=== PATIENT | female | born 1955 | race Caucasian/White ===

== ENCOUNTER 2018-08-19 08:29 | Emergency (ER) | payer BC ==
[~2018-08-19] VITALS: Ht 162.6 cm; Wt 105.5 kg
[2018-08-19] MEDS ORDERED: BYSTOLIC10 MG PO (08:38)
[2018-08-19] MEDS ORDERED: BETIMOL 5 ML5 ML OU (08:39)
[2018-08-19] MEDS ORDERED: LUMIGAN 2.5 ML2.5 M1 OP (09:03)
[2018-08-19] MEDS ORDERED: NORCO 325 MG-51 TAB PO (10:51)
[2018-08-19 10:58] VITALS: BP 163/85; PULSE 61
== END 2018-08-19 11:02 | disposition home or self-care (01) ==
LOC: COL.ER 08:29
DX: S46.911A Strain of unspecified muscle, fascia and tendon at shoulder and upper arm level, right arm, initial encounter (principal); S20.211A Contusion of right front wall of thorax, initial encounter; I10 Essential (primary) hypertension; V43.52XA Car driver injured in collision with other type car in traffic accident, initial encounter

== ENCOUNTER → 2023-02-20 | Outpatient (CLI) | payer BC ==
[~2023-02-20] MED LIST: BETIMOL 5 ML5 ML OU; BYSTOLIC10 MG PO; LUMIGAN 2.5 ML2.5 M1 OP; NORCO 325 MG-51 TAB PO
== END ==
LOC: COL.RAD 07:10
DX: R74.8 Abnormal levels of other serum enzymes (principal); R10.11 Right upper quadrant pain

== ENCOUNTER 2024-01-26 09:53 | Inpatient (IN) | payer MEDICARE ==
[~2024-01-26] VITALS: Ht 160 cm; Wt 111.5 kg
[~2024-01-26 09:53] MED LIST changes: +AMOXICILLIN 8751 TAB PO; +ASPIRIN 81M81 MG/TA2 PO; +BUSPAR5 MG PO; +COMPLETE MULTI1 TAB PO; +DESYREL 50MG50 MG PO; +DIFLUCAN200 MG PO; +FERRO-TIME325 MG PO; +PERCOCET 325 MG1 TA2 PO; +PROTONIX 40MG T40 MG PO; +THERA-D RAPID2000 IU PO
[2024-01-26] MEDS ORDERED: NS 1,000 ML IV SCH ×2 (10:15→13:45)
[2024-01-26] MEDS ORDERED: Cefepime 1 G in Water For Injection,Sterile 10 ML IV ONE (10:15)
[2024-01-26 10:28] LABS: COLLECTION METHOD CATHETER
[2024-01-26 10:32] LABS: ALBUMIN 1.9 g/dL (3.4-4.8); BILIRUBIN,TOTAL 0.9 mg/dL (0.2-1.2); CALCIUM 8.5 mg/dL (8.4-10.2); CREATININE, serum 0.57 mg/dL (0.57-1.11); POTASSIUM 3.5 mEq/L (3.5-4.5); TOTAL PROTEIN 6.5 g/dl (6.2-8.1)
[2024-01-26] MEDS ORDERED: Ondansetron 4 MG/2 ML VIAL IV ONE (10:45)
[2024-01-26] MEDS ORDERED: HYDROmorphone 0.5 MG/0.5 ML SYRINGE IV ONE (10:45)
[2024-01-26 11:00] LABS: PH 5.5 (5.0-8.5); URINE APPEARANCE TURBID (CLEAR/HAZY); URINE BLOOD 3+ (NEGATIVE); URINE COLOR Dark Yellow (YELLOW); URINE GLUCOSE NEGATIVE (NEGATIVE); URINE KETONE TRACE (NEGATIVE); URINE NITRATE NEGATIVE (NEGATIVE); URINE PROTEIN(semi-quant) TRACE (NEGATIVE)
[2024-01-26 11:05] LABS: HEMATOCRIT 26.8 % (37.0-47.0); HEMOGLOBIN 8.5 g/dl (12.5-16.0); MEAN CELL VOLUME 91 fl (80.0-100.0); MEAN CORPUSCULAR HEMOGLOBIN 29 pg (27-31); MEAN CORPUSCULAR HGB CONC 32 g/dl (33.0-37.0); MEAN PLATELET VOLUME 10.1 fl (7.4-10.4); PLATELET COUNT 426 K/mm3 (130-400); RED BLOOD COUNT 2.95 M/mm3 (4.10-5.30); REDCELL DISTRIBUTION WIDTH-CV 15.2 % (11.5-14.5)
[2024-01-26] MEDS ORDERED: Iohexol 300 - 100 ML VIAL IV ONE (11:22)
[2024-01-26] MEDS ORDERED: NS 100 ML IV SCH (11:23)
[2024-01-26 11:26] LABS: AMORPHOUS CRYSTAL PRESENT (NOT PRESENT); MUCOUS PRESENT (NOT PRESENT); URINE CALCIUM OXALATE CRYSTAL PRESENT (NOT PRESENT)
[2024-01-26 11:31] LABS: URINE BACTERIA MANY /hpf (NONE SEEN)
[2024-01-26 11:38] LABS: URINE WBC >50 /hpf (0-2)
[2024-01-26 12:03] LABS: ANISOCYTOSIS 1+; BAND 6 % (0-10); LYMPHOCYTE 2 % (20.0-51.0); METAMYELOCYTE 2 % (0-0); NEUTROPHILS 90 % (42.0-75.2); PLATELET ESTIMATE INCREASED (NORMAL)
[2024-01-26 12:04] LABS: HYPOCHROMIA 1+; STOMATOCYTE 1+
[2024-01-26] MEDS ORDERED: Polyethylene Glycol 3350 17 GM PDS PO PRN (13:45)
[2024-01-26] MEDS ORDERED: Ondansetron 4 MG/2 ML VIAL IV PRN (13:45)
[2024-01-26] MEDS ORDERED: Acetaminophen 500 MG TAB PO PRN (13:45)
[2024-01-26] MEDS ORDERED: Vancomycin 1.25 GM,Special Dose/Pharmacy Prepared 1.25 GM in NS 250 ML IV SCH ×2 (14:00→23:30)
[2024-01-26] MEDS ORDERED: metroNIDAZOLE 100 ML IV ONE (14:00)
[2024-01-26] MEDS ORDERED: Morphine 4 MG/ML VIAL IV PRN (14:00)
[2024-01-26] MEDS ORDERED: COLACE 100100 MG/CAP PO (15:03)
[2024-01-26] MEDS ORDERED: WELLBUTRIN XL150 MG PO (15:08)
[2024-01-26 15:45] VITALS: BP 108/69; PULSE 101; TEMP 98.4
--- NOTE | 2024-01-26 16:23 | NUR ---
PT TO ROOM 324 PER CART FROM ED. TRANSFERED TO BED. PABON CATHETER TO DD. CLOUDY URINE. ABDOMINAL INCISION TO LEFT LATERAL WITH A COLOSTOMY BAG OVER DRAIN, SCANT DRAINAGE IN BAG. MEDIAL TO THAT THE OTHER INCISION COVERED WITH GAUZE AND TAPE. CDI. MIDLINE INCISION HEALED FROM LAST ADMISSION.
[2024-01-26] MEDS ORDERED: Cefepime 1 G in Water For Injection,Sterile 10 ML IV SCH (16:45)
[2024-01-26 17:00] VITALS: BP_SYST 108
[2024-01-26 20:00] VITALS: BP_SYST 109
[2024-01-26 20:08] VITALS: BP 109/67; PULSE 89; TEMP 98.2
[2024-01-26] MEDS ORDERED: busPIRone 5 MG TAB PO SCH (21:00)
[2024-01-26] MEDS ORDERED: TIMOLOL 0.25% OP SCH (21:00)
[2024-01-26] MEDS ORDERED: traZODone 50 MG TAB PO SCH (21:00)
[2024-01-26] MEDS ORDERED: metroNIDAZOLE 100 ML IV SCH (22:00)
[2024-01-26 23:51] VITALS: BP 97/61; PULSE 78; TEMP 97.8
[2024-01-27] VITALS (12 sets, daily range): BP systolic 97–145; BP diastolic 55–71; PULSE 78–87; TEMP 98–98.6
[2024-01-27 06:21] LABS: MEAN CELL VOLUME 91 fl (80.0-100.0); MEAN CORPUSCULAR HGB CONC 31 g/dl (33.0-37.0); MEAN PLATELET VOLUME 10.1 fl (7.4-10.4); PLATELET COUNT 351 K/mm3 (130-400); RED BLOOD COUNT 2.48 M/mm3 (4.10-5.30); REDCELL DISTRIBUTION WIDTH-CV 15.2 % (11.5-14.5)
[2024-01-27 06:26] LABS: HEMATOCRIT 22.6 % (37.0-47.0); HEMOGLOBIN 7.1 g/dl (12.5-16.0); MEAN CORPUSCULAR HEMOGLOBIN 29 pg (27-31)
[2024-01-27 06:35] LABS: CALCIUM 7.7 mg/dL (8.4-10.2); CREATININE, serum 0.5 mg/dL (0.57-1.11); POTASSIUM 3.3 mEq/L (3.5-4.5)
--- NOTE | 2024-01-27 06:36 | NUR ---
AM WBC UP FROM ADMISSION, NAILA BERMUDEZ TAKING OVER PT WILL REPORT WHEN PA ARRIVES ON FLOOR.
[2024-01-27 07:11] LABS: BAND 10 % (0-10); EOSINOPHIL 2 % (0-4); LYMPHOCYTE 7 % (20.0-51.0); NEUTROPHILS 77 % (42.0-75.2); PLATELET ESTIMATE NORMAL (NORMAL)
[2024-01-27 07:12] LABS: HYPOCHROMIA 1+; OVALOCYTES 1+
--- NOTE | 2024-01-27 07:16 | NUR ---
critical wbc called to sabrina davis, no new orders at this time
--- NOTE | 2024-01-27 07:50 | NUR ---
blood culture results called Joselyn Pardo
--- NOTE | 2024-01-27 08:48 | NUR ---
JASMIN LEYVA MADE AWARE OF CALL FROM TAYA IN LAB WITH LAB REPORT OF CULTURES
[2024-01-27] MEDS ORDERED: buPROPion XL (24-HR) 150 MG TAB PO SCH (09:00)
--- NOTE | 2024-01-27 09:09 | NUR ---
Patient resting in bed. She did well with breakfast, sat up and food cut up. She denies nausea. Pain managed at this time with PRN tylenol, Left flank. Ostomy bag intact to Left quadrant wound. Gauze dressing to left lower quadant. Drainage present to gauze. Scds ble. Legs and feet cleansed and lotion applied to skin. socks off. oral care supplies provided. Will monitor
--- NOTE | 2024-01-27 10:10 | NUR ---
SPOKE WITH LEAH WITH WOUND CARE, SHE IS AWARE OF NEW CONSULT.
[2024-01-27] MEDS ORDERED: oxyCODONE/Acetaminophen 5-325 MG TAB PO PRN (11:15)
--- NOTE | 2024-01-27 11:40 | NUR ---
Called and spoke to pharmacy about vanc orders and holding off on giving ordered dose of vanc. also called and spoke to infection control about VRE results. Patient placed on contact precautions
[2024-01-27] MEDS ORDERED: NS IV SCH (13:00)
[2024-01-27] MEDS ORDERED: DAPTOMYCIN IV SCH (13:00)
--- NOTE | 2024-01-27 13:20 | NUR ---
Did discussed patient H&H results with hospitalist and Lovenox dose still okayed to give. Patient tolerated PO K+, we reviewed lab results and why she is ordered to take.
--- NOTE | 2024-01-27 14:53 | NUR ---
Social work student met with patient to discuss discharge planning. Patient lives in [place] ([facility]) and sees Dr. Rodriguez for primary care. Patient obtains her medications from [employer] with no difficulties affording them. Patient reported her best point of contacts are her brother Vijay (ph#:[phone]) and her friend Sulema (ph#:[phone]). Patient's dpoa-hc is Vijay. Patient does not use DME and is independent with ADLS. Patient is unable to transport herself to and from appointments due to being legally blind, so her friends take her. Patient reported that what she does after discharge depends on the doctors orders and that she will "not be going back to [facility]".
--- NOTE | 2024-01-27 17:15 | NUR ---
Patient slept well this afternoon. Assisted to sit up and cut up dinner. IV to INT. Schaefer to DD with edwin output. PO intake encouraged. New dressing to prior drain site, gauze soiled. New ostomy appliance applied to fistula, output odorous. Scds off per patient request. Will monitor
--- NOTE | 2024-01-27 18:28 | NUR ---
Gloria did well with dinner. denies needs, will report off to nightnurse
--- NOTE | 2024-01-27 21:30 | NUR ---
Patient assessed at this time, see shift assessment, reports pain to abdomen PS of 6.5-7/10, percocet given per request, INT to left hand infusing well, with cisneros to DD, ostomy bag intact to left quadrant wound, gauze dressing to left lower quadrant CDI, will closely monitor, has been passing gas, denies further needs, call light and personal items within reach, will continue to monitor.
[2024-01-28] VITALS (11 sets, daily range): BP systolic 124–144; BP diastolic 54–67; PULSE 85–90; TEMP 97.9–98.8
--- NOTE | 2024-01-28 02:03 | NUR ---
Patient awakened for scheduled lovenox shot, requested tylenol at this time as well.
[2024-01-28 07:09] LABS: MEAN CELL VOLUME 92 fl (80.0-100.0); MEAN CORPUSCULAR HGB CONC 32 g/dl (33.0-37.0); MEAN PLATELET VOLUME 10.5 fl (7.4-10.4); PLATELET COUNT 424 K/mm3 (130-400); RED BLOOD COUNT 2.94 M/mm3 (4.10-5.30); REDCELL DISTRIBUTION WIDTH-CV 15.2 % (11.5-14.5)
[2024-01-28 07:11] LABS: HEMOGLOBIN 8.5 g/dl (12.5-16.0); MEAN CORPUSCULAR HEMOGLOBIN 29 pg (27-31)
[2024-01-28 07:32] LABS: ALBUMIN 1.6 g/dL (3.4-4.8); BILIRUBIN,TOTAL 0.4 mg/dL (0.2-1.2); CALCIUM 8.4 mg/dL (8.4-10.2); CREATININE, serum 0.53 mg/dL (0.57-1.11); MAGNESIUM 1.8 mg/dL (1.6-2.6); POTASSIUM 3.5 mEq/L (3.5-4.5); TOTAL PROTEIN 5.9 g/dl (6.2-8.1)
[2024-01-28 07:37] LABS: ANISOCYTOSIS 1+; EOSINOPHIL 4 % (0-4); HYPOCHROMIA 2+; LYMPHOCYTE 2 % (20.0-51.0); NEUTROPHILS 90 % (42.0-75.2); PLATELET ESTIMATE NORMAL (NORMAL)
--- NOTE | 2024-01-28 08:50 | NUR ---
Pt doing okay this morning. She stated that she felt like she needed to have bowel movement, but would need pain medication prior to going. I did given her PRN IV pain medication. Assisted pt to the restroom, but she was not able to go. Pt having complaints that her cisneros catheter rocha when she goes to the bathroom. Pt is standby assist with walker. Does well, just needs directed where to go.
--- NOTE | 2024-01-28 10:00 | NUR ---
Gloria with wound care was in with pt. Ostomy changed over fistula drain site an additional ostomy wafer/drainage bag placed lower over previous drain site. Pt tolerated well. PRN percocet given to help manage abd pain.
[2024-01-28] MEDS ORDERED: Docusate Sodium 100 MG CAP PO SCH (11:00)
[2024-01-28] MEDS ORDERED: Polyethylene Glycol 3350 17 GM PDS PO SCH (11:00)
--- NOTE | 2024-01-28 12:23 | NUR ---
PT reports she is doing well. Stated that the PRN percocet did help. No needs at this time, will continue to monitor
--- NOTE | 2024-01-28 16:13 | NUR ---
Dr Mancilla in recently. Discussed pt have cisneros catheter in which she has had complaints of. Dr Mancilla okay with cisneros being removed. Called and discussed with Can LEYVA, orders entered for cisneros to be removed.
--- NOTE | 2024-01-28 16:33 | NUR ---
Service Advisor met with patient to discuss discharge planning. Patient stated she is not returning to [facility], but is open to other SNFs in the area. SW reviewed in network options (patient has [employer]) including [facility], [facility], [facility], and [facility]. SW also discussed the possible need for LTACH depending on wound care/antibiotic complexity. Patient stated she wants to stay as close to home as possible. Patient is not sure where she wants referrals sent and wants to discuss things with Dr. Mancilla and her friend, Sulema before referrals are sent. SW did advised patient that a referral could be sent, but that [facility] has been short on beds. SW contacted Sulema to discuss the above. Sulema inquired if [facility] or [facility] were in network and SW advised she would have to check with them. Sulema will discuss options with patient and SW will follow up tomorrow. Discharge Planning: SNF/S[facility] Bed/LTACH, patient considering options.
--- NOTE | 2024-01-28 20:56 | NUR ---
Patient resting in bed, assessed at this time, see shift assessment, A/Ox4, reports pain to abdomen, PS of 8/10, will medicate with percocet in an hour, 2 ostomy appliance bag on to left lower quadrant draining brown pasty output, reports she's passing gas and had a BM, refused her SCD's, offered to give her a sponge bath but refused, denies further needs, call light and personal items within reach, will continue to monitor.
[2024-01-29] VITALS (12 sets, daily range): BP systolic 119–144; BP diastolic 47–64; PULSE 86–92; TEMP 97.8–98.8
--- NOTE | 2024-01-29 01:58 | NUR ---
Patient just went to the bathroom assisted by the roni kim given at this time, emptied 2 ostomy appliance pouch, the fistula drain site was 150ml brownish and pasty and the previous drain site was only 10ml brownish and pasty as well.
--- NOTE | 2024-01-29 04:55 | NUR ---
Patient complained of pain to the drain site, PS of 7/10, medicated with percocet, ostomy pouches were drained at this time, fistula drain site was 50ml and the previous drain site were 3ml, still brown and pasty, denies further needs.
--- NOTE | 2024-01-29 08:36 | NUR ---
Called lab due to pt requesting particular lab staff. Informed pt this staff member is not working today. Natalie from lab and Harriet YOO from [facility] came up incase Natalie was not able to find a vein. They had no issues getting labs drawn.
--- NOTE | 2024-01-29 09:10 | NUR ---
Pt doing well this morning. She stated that she is not having much pain, but wanted something prior to therapy. Discussed options, and decided on tylenol. Ostomy wafers are in place with no leaking present. Gloria from wound care in to see pt and assess pouches. Pt denies any other needs, will continue to monitor
[2024-01-29 09:22] LABS: MEAN CELL VOLUME 91 fl (80.0-100.0); MEAN CORPUSCULAR HGB CONC 31 g/dl (33.0-37.0); MEAN PLATELET VOLUME 10.5 fl (7.4-10.4); PLATELET COUNT 386 K/mm3 (130-400); RED BLOOD COUNT 2.96 M/mm3 (4.10-5.30); REDCELL DISTRIBUTION WIDTH-CV 15.4 % (11.5-14.5)
[2024-01-29 09:24] LABS: HEMATOCRIT 26.8 % (37.0-47.0); HEMOGLOBIN 8.4 g/dl (12.5-16.0); MEAN CORPUSCULAR HEMOGLOBIN 28 pg (27-31)
[2024-01-29 09:43] LABS: CALCIUM 8.2 mg/dL (8.4-10.2); CREATININE, serum 0.46 mg/dL (0.57-1.11); MAGNESIUM 1.8 mg/dL (1.6-2.6); POTASSIUM 3.5 mEq/L (3.5-4.5)
[2024-01-29 09:51] LABS: ANISOCYTOSIS 1+; BAND 5 % (0-10); HYPOCHROMIA 1+; LYMPHOCYTE 12 % (20.0-51.0); NEUTROPHILS 80 % (42.0-75.2); PLATELET ESTIMATE NORMAL (NORMAL)
--- NOTE | 2024-01-29 11:38 | NUR ---
Pt continues to do well. No needs verbalized at this time. OT in to work with pt
--- NOTE | 2024-01-29 14:40 | NUR ---
Pt doing well, PRN pain medication working well. I did call Dr Beckett regarding cultures and antibiotics in regards to pt possibly needing PICC line. No new orders at this time
--- NOTE | 2024-01-29 19:00 | NUR ---
Assisted patient to the bathroom, voided and had a bm, assisted back to bed and assisted her for supper tray, denies further needs.
--- NOTE | 2024-01-29 20:23 | NUR ---
Patient complained of nausea, IV zofran given.
[2024-01-30] VITALS (8 sets, daily range): BP systolic 122–142; BP diastolic 53–65; PULSE 86–94; TEMP 98–98.7
--- NOTE | 2024-01-30 02:44 | NUR ---
Patient up to the bathroom at this time assisted by a tech, was told by the tech that patient reports that her ostomy appliance pouch is leaking, this nurse came in to see the patient, looks like it's not leaking anymore but noted a small amount of shadowing around the skin barrier/wafer, patient not agreeable to remove the appliance at this time and apply a new one, this nurse reinforced it with gauze and mefix tape, patient wanted to wait for Gloria,the BODY CLEANER this morning, will closely monitor.
--- NOTE | 2024-01-30 04:50 | NUR ---
Patient's IV leaking and infiltrated at this time, refused her IV antibiotic and IV reinsertion at this time since the plan for her today is to put a PICC line.
--- NOTE | 2024-01-30 08:26 | NUR ---
Pt laying in bed. A&Ox4. VSS. S1S2 on tele. Clear lungs in upper lobes bilaterally, diminished in bases. ABD is rounded, soft, non-tender with audible bowel sounds. Palpable pulses in all extremities. +2 edema in BLE. 2 ostomy bags on LLQ - both have brown-tinged drainage. Night RN told this RN, wound care was coming in at 0700 to change. Initially no IV, and requested advanced IV services to place a new one. IV placed in L wrist with no issues. Pt has call light in reach and bed alarm on.
--- NOTE | 2024-01-30 08:40 | NUR ---
Discussed plan with provider. Limit interuptions overnight to allow Pt to sleep. Monitor VS BID (0800, 1999). Insert PICC line later today and repeat Blood Cultures this afternoon. Take off tele. Pt seemed agreeable to this plan.
--- NOTE | 2024-01-30 10:31 | NUR ---
LATE ENTRY: 01/29/24 Metal Furniture Polisher followed up with patient on discharge planning. SW reviewed in network options again and patient stated she wants to go to IPR. SW attempted to discuss second preference, however patient stated she wants to try for IPR before discussing this further. SW contacted Leona, IPR Director and gave referral. SW also updated patient's friend, Sulema on conversation.
--- NOTE | 2024-01-30 13:06 | NUR ---
Supervisor Opening And Picking spoke with Leona, IPR Director who met with patient today and will start authorization. Leona advised she had a conversation with patient about their concern that [employer] may not authorize. Discharge Plan: IPR Screen
[2024-01-30] MEDS ORDERED: Linezolid 600 MG TAB PO SCH (14:30)
--- NOTE | 2024-01-30 18:38 | NUR ---
PATIENT RESTING IN BED WITH EYES CLOSED WITH NO ACUTE DISTRESS NOTED WITH TV OFF AND NO FAMILY PRESENT. PATIENT ON ROOM AIR. INT TO RIGHT AC INTACT WITH NO COMPLICATIONS NOTED. PATIENT DENIES ANY NEEDS AT THIS TIME. PATIENT CARE ASSUME FROM JUSTYN. BED IN LOW POSITION WITH WHEELS LOCKED WITH RAILS UP X3 AND CALL LIGHT WITHIN REACH. BED ALARM ON.
--- NOTE | 2024-01-30 20:25 | NUR ---
PATIENT RESTING IN BED WITH ALL LIGHTS OFF WITH TV OFF WITH NO FAMILY PRESENT WITH NO ACUTE DISTRESS NOTED. PATIENT ON ROOM AIRE. INT TO RIGHT AC INTACT WITH NO COMPLICATIONS NOTED. PATIETN C/O PAIN TO BACK AND NAUSEA. PO PERCOCET AND IV ZOFRAN GIVEN PER MD ORDER. PATIENT STATES PAIN LEVEL IS 8 ON A SCALE OF 0 TO 10. PATIENT REFUSED MORPHINE. MORPHINE RETURNED TO THE MEDICAL [facility]ENTER WITH MERY RODAS RN WITNESS. ASSESSMENT COMPLETED. OSTOMY BAGS TO LLQ INTACT WITH BROWNISH DRAINAGE NOTED. PATIENT TOELRATED WELL. PATIENT DENIES ANY OTHER NEEDS AT THIS TIME. BED IN LOW POSITION WITH WHEELS LOCKED WITH RIALS UP X3 AND CALL LIGHT WITHIN REACH. BED ALARM ON.
[2024-01-30] MEDS ORDERED: Melatonin 3 MG TAB PO SCH (21:00)
--- NOTE | 2024-01-30 21:25 | NUR ---
PATIENT RESTING IN BED WITH TV OFF WITH NO FAMILY PRESENT WITH NO ACUTE DISTRESS NOTED. PATIENT ON ROOM AIR. INT TO RIGHT AC INTACT WITH NO COMPLICATIONS NOTED. MEDICATION ADMINISTRATION COMPLETED AT THIS TIME. PATIENT TOLERATED WELL. PATIENT DENIES ANY NEEDS AT THIS TIME. BED IN LOW POSITION WITH WHEELS LOCKED WITH RAILS UP X3 AND CALL LIGHT WITHIN REACH. BED ALARM ON.
--- NOTE | 2024-01-31 02:06 | NUR ---
PATIENT RESTING IN BED WITH ALL LIGHTS OFF WITH TV OFF WITH NO FAMILY PRESENT WITH NO ACUTE DISTRESS NOTED. PATIENT ON ROOM AIR. INT TO RIGHT AC INTACT WITH NO COMPLICATIONS NOTED. MEDICATION ADMINISTRATION COMPLETED AT THIS TIME. PATIENT C/O PAIN. PO PERCOCET GIVEN PER MD ORDER. PATIENT STATES PAIN LEVEL IS 6.5 ON SCALE OF 0 TO 10. PATIENT REQUESTED ICE AND WATER. BOTH GIVEN. PATIENT TOLERATED WELL. PATIENT DENIES ANY OTHER NEEDS AT THIS TIME. BED IN LOW POSITION WITH WHEELS LOCKED WITH RAILS UP X3 AND CALL LIGHT WITHIN REACH. BED ALARM ON.
[2024-01-31 08:35] VITALS: BP 137/55; PULSE 91; TEMP 97.5
[2024-01-31 09:00] VITALS: BP_SYST 137
[2024-01-31 09:13] LABS: MEAN CELL VOLUME 89 fl (80.0-100.0); MEAN CORPUSCULAR HGB CONC 32 g/dl (33.0-37.0); MEAN PLATELET VOLUME 10.3 fl (7.4-10.4); PLATELET COUNT 369 K/mm3 (130-400); RED BLOOD COUNT 2.74 M/mm3 (4.10-5.30); REDCELL DISTRIBUTION WIDTH-CV 15.5 % (11.5-14.5)
[2024-01-31 09:15] LABS: HEMATOCRIT 24.3 % (37.0-47.0); HEMOGLOBIN 7.8 g/dl (12.5-16.0); MEAN CORPUSCULAR HEMOGLOBIN 28 pg (27-31)
[2024-01-31 09:28] LABS: CALCIUM 7.9 mg/dL (8.4-10.2); CREATININE, serum 0.51 mg/dL (0.57-1.11); MAGNESIUM 1.9 mg/dL (1.6-2.6); POTASSIUM 3.3 mEq/L (3.5-4.5)
[2024-01-31 09:43] LABS: ANISOCYTOSIS 1+; BAND 1 % (0-10); EOSINOPHIL 3 % (0-4); HYPOCHROMIA 1+; LYMPHOCYTE 18 % (20.0-51.0); NEUTROPHILS 59 % (42.0-75.2); PLATELET ESTIMATE NORMAL (NORMAL)
[2024-01-31] MEDS ORDERED: Potassium Bicarbonate/Citrate 20 MEQ Effervescent TAB PO SCH (10:15)
[2024-01-31] MEDS ORDERED: *Potassium Replacement Protocol MC SCH (10:15)
--- NOTE | 2024-01-31 15:51 | NUR ---
Optometrist Owner attended clinical rounds with the team. SHARONDA and Hospitalist discussed other options for post acute rehab and patient would like referral sent to [facility]. Patient resistant to [facility] as she stated her friend, Sulema recommended against it. Patient's first preference is still IPR. SHARONDA contacted Kristine at [facility] and faxed referral. SHARONDA also followed up with Sulema who advised she belives [facility] would be a good option and will discuss this with patient. Sulema followed up with SHARONDA and advised patient is agreeable to have referral sent there. SHARONDA contacted Caryl at [facility] and gave referral. Discharge Plan; IPR vs [facility]
[2024-01-31] MEDS ORDERED: cefTRIAXone 2 G,Lidocaine PF 1% 4.2 ML IV SCH (17:29)
[2024-01-31] MEDS ORDERED: cefTRIAXone 2 G in Water For Injection,Sterile 20 ML IV SCH (18:00)
[2024-01-31 20:02] VITALS: BP 122/60; PULSE 89; TEMP 98.1
[2024-01-31 21:00] VITALS: BP_SYST 122
[2024-01-31] MEDS ORDERED: Melatonin 3 MG TAB PO SCH (21:00)
[2024-02-01 07:00] LABS: MEAN CELL VOLUME 89 fl (80.0-100.0); MEAN CORPUSCULAR HGB CONC 32 g/dl (33.0-37.0); MEAN PLATELET VOLUME 10.5 fl (7.4-10.4); PLATELET COUNT 358 K/mm3 (130-400); RED BLOOD COUNT 2.62 M/mm3 (4.10-5.30); REDCELL DISTRIBUTION WIDTH-CV 15.6 % (11.5-14.5)
[2024-02-01 07:07] LABS: HEMATOCRIT 23.3 % (37.0-47.0); HEMOGLOBIN 7.4 g/dl (12.5-16.0); MEAN CORPUSCULAR HEMOGLOBIN 28 pg (27-31)
[2024-02-01 07:17] LABS: CALCIUM 7.8 mg/dL (8.4-10.2); CREATININE, serum 0.48 mg/dL (0.57-1.11); MAGNESIUM 1.9 mg/dL (1.6-2.6); POTASSIUM 3.7 mEq/L (3.5-4.5)
[2024-02-01] MEDS ORDERED: Potassium Bicarbonate/Citrate 20 MEQ Effervescent TAB PO SCH (07:30)
[2024-02-01 08:03] VITALS: BP 123/55; PULSE 90; TEMP 98.8
[2024-02-01 08:10] LABS: BAND 1 % (0-10); EOSINOPHIL 1 % (0-4); LYMPHOCYTE 8 % (20.0-51.0); NEUTROPHILS 76 % (42.0-75.2)
[2024-02-01 08:11] LABS: ANISOCYTOSIS 1+; PLATELET ESTIMATE NORMAL (NORMAL)
[2024-02-01 08:40] VITALS: BP_SYST 123
--- NOTE | 2024-02-01 08:40 | NUR ---
Pt sitting up in bedside chair. Pt ambulated back from bathroom with waker. A&Ox4. VSS. S1S2. Clear lungs. ABD is rounded, soft, non-tender with audible bowel sounds. Palpable pulses in all extremities with normal strength. PICC line in R upper arm is patent, flushes easily, positive blood return out of red port. x2 ostomy bags in LLQ - both are CDI and have small amount of light marroquin drainage. +2 edema in BLE. PCT in room to do hygiene. Administered AM meds as per EMAR. No further needs at this time. Call light in reach.
--- NOTE | 2024-02-01 09:55 | NUR ---
Pt reporting pain - 8/10, achy, across lower abdomen. Pt stated Tylenol helped a little but then after moving around with therapy, the gas pain got worse. Pt also reported nausea. Administered meds as per EMAR.
--- NOTE | 2024-02-01 14:05 | NUR ---
SHARONDA contacted both [facility] on status of pending authorization for [facility] referral. Left voicemail with [facility] and spoke with nurse (Mily) at [facility] facility and was informed that case management does not work over the weekend and review notes and at this time authorization is still pending.
[2024-02-01 16:35] VITALS: BP 122/60; PULSE 85; TEMP 98.4
--- NOTE | 2024-02-01 17:00 | NUR ---
PATIENT ALERT AND ORIENTED X4. VSS. PATIENT HERE FOR ABDOMINAL ABSCESS. PATIENT DENIES ANY PAIN AT THIS TIME. PICC TO RIGHT UPPER ARM, DOUBLE LUMEN, GOOD BLOOD RETURN AND FLUSHES WELL. APPLIANCE AND OSTOMY CHANGED X2. PATIENT DENIES ANY FURTHER NEEDS. CALL LIGHT IN REACH. BED ALARM ON.
[2024-02-01 20:02] VITALS: BP 139/57; BP_SYST 138; PULSE 85; TEMP 98.3
[2024-02-01 21:27] VITALS: BP_SYST 139
[2024-02-02 07:32] VITALS: BP 127/57; PULSE 90; TEMP 98.3
--- NOTE | 2024-02-02 08:50 | NUR ---
PATIENT A/O X4. LEGALLY BLIND, USES WALKER WITH 1 ASSIST. CONTINENT OF URINE, YELLOW, CLEAR. BM THIS AM, LOOSE, CONTINENT. EMPTIED BOTH OSTOMY BAGS, BROWN LIQUID. BARRIER CREAM APPLIED TO COCCYX. PATIENT STATES COCCYX FEELS BETTER. EDEMA TO BLE. PITTING RESOLVES QUICKLY. NO SCDS ON DURING AM, PATIENT REFUSED TO REAPPLY. PATIENT CALLED IN BREAKFAST. CALL LIGHT IN REACH
[2024-02-02 09:00] VITALS: BP_SYST 127
--- NOTE | 2024-02-02 11:05 | NUR ---
CHANGED OSTOMY BAGS, BUT CHOSE NOT TO CAHNGE APPLIANCE DUE TO PATIENT'S SKIN SHOWING SLIGHT IRRITATION AND THERE WERE NO LEAKS WITH BOTH APPLIANCES. PATIENT AGREED TO PLAN.
--- NOTE | 2024-02-02 12:22 | NUR ---
Clinical updates faxed to [facility] and [facility].
--- NOTE | 2024-02-02 15:04 | NUR ---
CHANGED OSTOMY BAGS X2. SKIN BARRIER INTACT X2, LEFT IN PLACE. APPLIED THIN STRIP MEPILEX BETWEEN 2 SKIN BARRIERS EDGE LOOKED IT MAY PEEL UP. SITES, PINK. NO COMPLAINT OF PAIN FROM PATIENT.CALL LIGHT WITHIN REACH. TABLE PLACED PER PATIENT VERBALIZATION
[2024-02-02 15:58] VITALS: BP 133/58; PULSE 90; TEMP 98.3
[2024-02-02 19:22] VITALS: BP 141/59; PULSE 80; TEMP 98
[2024-02-02 20:00] VITALS: BP_SYST 141
[2024-02-03 05:45] LABS: MEAN CELL VOLUME 89 fl (80.0-100.0); MEAN CORPUSCULAR HGB CONC 32 g/dl (33.0-37.0); MEAN PLATELET VOLUME 10.4 fl (7.4-10.4); PLATELET COUNT 339 K/mm3 (130-400); RED BLOOD COUNT 2.55 M/mm3 (4.10-5.30); REDCELL DISTRIBUTION WIDTH-CV 16.3 % (11.5-14.5)
[2024-02-03 05:49] LABS: HEMATOCRIT 22.7 % (37.0-47.0); HEMOGLOBIN 7.2 g/dl (12.5-16.0); MEAN CORPUSCULAR HEMOGLOBIN 28 pg (27-31)
[2024-02-03 06:07] LABS: CALCIUM 7.8 mg/dL (8.4-10.2); CREATININE, serum 0.47 mg/dL (0.57-1.11); POTASSIUM 3.8 mEq/L (3.5-4.5)
[2024-02-03 06:44] LABS: HYPOCHROMIA 2+; LYMPHOCYTE 9 % (20.0-51.0); NEUTROPHILS 80 % (42.0-75.2)
[2024-02-03 06:45] LABS: ANISOCYTOSIS 1+; PLATELET ESTIMATE NORMAL (NORMAL)
[2024-02-03 08:09] VITALS: BP 128/57; PULSE 87; TEMP 98.6
[2024-02-03 08:53] VITALS: BP_SYST 128
[2024-02-03] MEDS ORDERED: Potassium Bicarbonate/Citrate 20 MEQ Effervescent TAB PO ONE (09:00)
--- NOTE | 2024-02-03 11:35 | NUR ---
Hub Bander left message for [facility] and [facility] to follow up on status of athorization for skilled services. Received call from Carol Ann at [facility] stating that they have received authorization from insurance and can accept patient today. She provided nurse to nurse number for report to be called ([phone]) and Provider name of GORDON Mccray. information provided to nurse. Discussed acceptance with patient at bedside. IPR Director present to inform patient that she does not qualify for IPR placement. Patient informed that [facility] has accepted and received auth from insurance and can accept her today if surgeon determines she is stable for discharge. Patient voiced disappointment that [facility] did not accept. Informed patient that [facility] has not returned call. SW called Carol Ann at [facility] to alert her of pending visit with surgeon to determine that patient can discharge. Carol Ann stated they can admit patient preferably by 1600. Discharge plan: [facility]
[2024-02-03 11:43] VITALS: BP 116/62; PULSE 94; TEMP 98.3
--- NOTE | 2024-02-03 14:05 | NUR ---
SHARONDA recieved call from Carol Ann at [facility] stating concern of patient's labs. They are asking for patient to remain inpt and have labs redone tomorrow before accepting. Dr. Boone notified and agreeable, Discharge plan: [facility]
[2024-02-03 14:52] LABS: CLOSTRIDIUM DIFF A/B NEG
--- NOTE | 2024-02-03 17:53 | NUR ---
Pt leaving the floor at this time for CT scan
[2024-02-03 20:00] VITALS: BP 117/48; PULSE 86; TEMP 99
--- NOTE | 2024-02-03 20:23 | NUR ---
Patient in good spirits, told this nurse that her son and his family came in to visit her last saturday which they were not in good relation before, assessed at this time, reports her pain at 7/10, medicated with percocet, still with PICC to right upper arm CDI, with 2 ostomy appliance to left lower quadrant will closely monitor for drainage and leakage, plan of care discussed to include vitals which will be done when the lovenox is due at 0145, denies further needs, call light and personal items within reach, will monitor.
[2024-02-03 21:00] VITALS: BP_SYST 117
[2024-02-03 21:30] VITALS: TEMP 98.7
[2024-02-04 01:58] VITALS: BP 134/58; PULSE 96; TEMP 99.1
--- NOTE | 2024-02-04 02:17 | NUR ---
Awakened patient at this time for scheduled lovenox shots, she voided and had a bm, reports pain to abdomen, PS of 6/10,medicated with percocet, denies further needs.
[2024-02-04 05:36] VITALS: TEMP 98.1
[2024-02-04 06:43] LABS: MEAN CELL VOLUME 90 fl (80.0-100.0); MEAN CORPUSCULAR HGB CONC 32 g/dl (33.0-37.0); MEAN PLATELET VOLUME 10.3 fl (7.4-10.4); PLATELET COUNT 335 K/mm3 (130-400); RED BLOOD COUNT 2.59 M/mm3 (4.10-5.30); REDCELL DISTRIBUTION WIDTH-CV 16.8 % (11.5-14.5)
[2024-02-04 06:45] LABS: HEMATOCRIT 23.2 % (37.0-47.0); HEMOGLOBIN 7.5 g/dl (12.5-16.0); MEAN CORPUSCULAR HEMOGLOBIN 29 pg (27-31)
[2024-02-04 06:55] LABS: CALCIUM 7.9 mg/dL (8.4-10.2); CREATININE, serum 0.47 mg/dL (0.57-1.11); POTASSIUM 3.8 mEq/L (3.5-4.5)
[2024-02-04 07:23] LABS: BAND 1 % (0-10); EOSINOPHIL 2 % (0-4); LYMPHOCYTE 11 % (20.0-51.0); NEUTROPHILS 75 % (42.0-75.2)
[2024-02-04 07:24] LABS: ANISOCYTOSIS 1+; PLATELET ESTIMATE NORMAL (NORMAL)
[2024-02-04 08:29] VITALS: BP 139/57; PULSE 100; TEMP 98.4
[2024-02-04 09:00] VITALS: BP_SYST 139
[2024-02-04] MEDS ORDERED: metroNIDAZOLE 250 MG TAB PO SCH (09:00)
--- NOTE | 2024-02-04 09:27 | NUR ---
SW attended clinical rounds. Patient cleared for discharge per Dr. Boone and Dr Mancilla. Updated clinicals faxed and message left for Carol Ann at [facility] to alert of discharge. SW met with patient to discuss discharge and Medicare IM form. Patient insistent on speaking with Dr. Mancilla before signing IM form. SW called Sulema, patient's primary contact. Sulema voiced frustration that she wasn't notified of patient's discharge and stated she has plans today and is unsure of patient's transport. Discussed transportation being arranged to take patient to [facility] with patient being responsible for payment. Sulema stated she needs to talk with her and will return call to this SW. Dr. Boone updated. Discharge plan: [facility]
[2024-02-04] MEDS ORDERED: ZYVOX 600MG600 MG PO (10:42)
[2024-02-04] MEDS ORDERED: FLAGYL500 MG PO (10:43)
[2024-02-04] MEDS ORDERED: LEADER CLE17 GM/Dose PO (10:45)
--- NOTE | 2024-02-04 11:16 | NUR ---
SW received call back from Sulema stating that she can pick patient up to transport to [facility] at 1400. Nurse notified of spanish moss picker time. Discharge orders faxed to [facility]. SW met with patient to discuss Medicare IM form. Patient agreeable to discharge and authorized this SW to sign on her behalf due to patient's blindness. Orginial on chart, copy given to patient.
--- NOTE | 2024-02-04 11:21 | NUR ---
PATIENT ALERT AND ORIENTED X4. VSS. PATIENT HERE FOR ABD ABSCESS/FISTULA. PICC TO RIGHT UPPER ARM DOUBLE LUMEN, FLUSHES WELL WITH GOOD BLOOD RETURN. OSTOMY BAGS AND APPLIANCES CHANGED WITH STOMA POWDER AND SKIN PREPPED USED. PATIENT REPORTS PAIN 6/10, REQUESTS PAIN MEDICATION. PATIENT AMBULATED TO BATHROOM WITH NO ISSUE. PATIENT RESTING IN BED, CALL LIGHT IN REACH. BED ALARM ON.
--- NOTE | 2024-02-04 13:42 | NUR ---
OSTOMY CARE AND APPLIANCE CARE PROVIDED THIS AM. PATIENT DRESSED AND AMBULATED TO BATHROOM. PATIENT DENIES ANY FURTHER NEEDS. PACKET GIVEN TO PATIENT'S FRIEND, JOSE MARTIN, TO GIVE TO [facility]. PATIENT ESCORTED OUT WITH [facility]ONG[facility]. ATTEMPTED TO CALL REPORT. LEFT NUMBER FOR THEM TO RETURN THIS NURSE'S CALL.
--- NOTE | 2024-02-04 13:54 | NUR ---
PATIENT ESCORTED OUT VIA WHEELCHAIR WITH FRIEND FOR TRANSPORT TO [facility]. PICC IN PLACE, KAERN, DOUBLE LUMEN. PERSONAL AFFECTS WITH PATIENT.
[2024-02-09] MEDS ORDERED: PERCOCET 325 MG1 TA2 PO (20:10)
== END 2024-02-04 15:00 | disposition swing bed (61) | DRG 871 ==
LOC: COL.ER 09:53 → SURG 12:29
PROVIDERS: Family Medicine; Internal Medicine; Internal Medicine Infectious Disease; Physician Assistant; ADMIT Internal Medicine
PROC: 02HV33Z Insertion of Infusion Device into Superior Vena Cava, Percutaneous Approach (ICD-10-PCS; principal; 2024-01-31)
DX: A41.9 Sepsis, unspecified organism (principal); K65.1 Peritoneal abscess; N39.0 Urinary tract infection, site not specified; K63.2 Fistula of intestine; J90 Pleural effusion, not elsewhere classified; Z16.21 Resistance to vancomycin; E87.1 Hypo-osmolality and hyponatremia; Z20.822 Contact with and (suspected) exposure to COVID-19; F32.A Depression, unspecified; K21.9 Gastro-esophageal reflux disease without esophagitis; B95.2 Enterococcus as the cause of diseases classified elsewhere; D64.9 Anemia, unspecified; G47.00 Insomnia, unspecified; H54.7 Unspecified visual loss; B95.7 Other staphylococcus as the cause of diseases classified elsewhere; R19.7 Diarrhea, unspecified; E87.6 Hypokalemia; K59.00 Constipation, unspecified; N83.291 Other ovarian cyst, right side; Z79.899 Other long term (current) drug therapy; Z88.1 Allergy status to other antibiotic agents; Z91.041 Radiographic dye allergy status; Z23 Encounter for immunization
CPT/HCPCS: A4314; C1751; J0692; J0696; J0878; J1170; J1650; J1836; J2270; J2405; J3370; J7030; J7050; Q3014; Q9967

== ENCOUNTER 2024-06-01 16:31 | Observation (INO) | payer MEDICARE ==
[~2024-06-01] VITALS: Ht 162.6 cm; Wt 96.2 kg
[~2024-06-01 16:31] MED LIST changes: +COLACE 100100 MG/CAP PO; +FLAGYL 500500 MG/100 IV; +FLAGYL500 MG PO; +LEADER CLE17 GM/Dose PO; +MAXIPIME1 GM IV; +NEURONTIN100 MG/CAP PO; +PROBIOTIC ACID1 EAC3 PO; +ROXICODONE 55 MG/TAB PO; +TYLENOL 325MG325 MG PO; +WELLBUTRIN XL150 MG PO; +ZYVOX 600MG600 MG PO; +ZYVOX PREM600 MG/300 IV
[2024-06-01 17:38] LABS: BASO # 0.1 K/mm3 (0.0-0.2); BASO % 0.8 % (0.0-2.0); EOS # 0.1 K/mm3 (0.0-0.7); EOS % 0.8 % (0.0-4.0); GRAN # 5.7 K/mm3 (1.4-6.5); GRAN % 76.4 % (42.2-75.2); LYMPH # 0.5 K/mm3 (1.2-3.4); LYMPH % 7.3 % (20.0-51.0); MEAN CELL VOLUME 95 fl (80.0-100.0); MEAN CORPUSCULAR HGB CONC 32 g/dl (33.0-37.0); MEAN PLATELET VOLUME 10.2 fl (7.4-10.4); MONO # 1.1 K/mm3 (0.1-0.6); MONO % 14.4 % (1.7-9.3); PLATELET COUNT 243 K/mm3 (130-400); RED BLOOD COUNT 3.12 M/mm3 (4.10-5.30); REDCELL DISTRIBUTION WIDTH-CV 19.5 % (11.5-14.5)
[2024-06-01 17:42] LABS: HEMATOCRIT 29.7 % (37.0-47.0); HEMOGLOBIN 9.5 g/dl (12.5-16.0); MEAN CORPUSCULAR HEMOGLOBIN 30 pg (27-31)
[2024-06-01 17:46] LABS: COLLECTION METHOD CATHETER
[2024-06-01 17:55] LABS: URINE APPEARANCE CLEAR (CLEAR/HAZY); URINE BLOOD NEGATIVE (NEGATIVE); URINE COLOR YELLOW (YELLOW); URINE GLUCOSE NEGATIVE (NEGATIVE); URINE KETONE NEGATIVE (NEGATIVE); URINE NITRATE NEGATIVE (NEGATIVE); URINE PROTEIN(semi-quant) NEGATIVE (NEGATIVE); URINE UROBILINOGEN 0.2 E.U/dL (0.2-1.0)
[2024-06-01 17:57] LABS: BILIRUBIN,TOTAL 0.6 mg/dL (0.2-1.2); CALCIUM 8.6 mg/dL (8.4-10.2); CREATININE, serum 0.8 mg/dL (0.57-1.11); MAGNESIUM 1.5 mg/dL (1.6-2.6); TOTAL PROTEIN 6.3 g/dl (6.2-8.1)
[2024-06-01 18:03] LABS: TROPONIN-I 0.013 ng/mL (0.00-0.033)
[2024-06-01] MEDS ORDERED: Magnesium Oxide 400 MG TAB PO ONE (18:30)
[2024-06-01] MEDS ORDERED: NS 250 ML IV ONE (18:45)
[2024-06-01] MEDS ORDERED: Acetaminophen 325 MG TAB PO PRN (19:15)
[2024-06-01] MEDS ORDERED: Potassium Bicarbonate/Citrate 20 MEQ Effervescent TAB PO SCH (19:30)
[2024-06-01] MEDS ORDERED: Iohexol 300 - 100 ML VIAL IV ONE (20:18)
[2024-06-01] MEDS ORDERED: NS 50 ML IV SCH (20:19)
[2024-06-01 21:20] VITALS: BP 138/81; PULSE 84; TEMP 97.7
[2024-06-01] MEDS ORDERED: ELIQUIS 5MG PO (22:00)
[2024-06-01] MEDS ORDERED: PROTONIX 40MG T40 MG PO (22:07)
[2024-06-01] MEDS ORDERED: LASIX 20MG TABL20 MG PO (22:08)
[2024-06-01] MEDS ORDERED: ATIVAN 0.50.5 MG/TAB PO (22:09)
[2024-06-01] MEDS ORDERED: ROXICODONE 55 MG/TAB PO (22:17)
[2024-06-01] MEDS ORDERED: K-DUR20 MEQ PO (22:19)
[2024-06-01] MEDS ORDERED: PEPCID 20MG TAB20 MG PO (22:19)
[2024-06-01] MEDS ORDERED: ZOFRAN ODT4 MG PO (22:22)
[2024-06-01] MEDS ORDERED: Apixaban 5 MG TABLET PO SCH (22:39)
[2024-06-01] MEDS ORDERED: busPIRone 5 MG TAB PO SCH (22:41)
[2024-06-01] MEDS ORDERED: traZODone 50 MG TAB PO SCH (22:41)
[2024-06-01] MEDS ORDERED: Cholecalciferol (Vit D3) 1000 Units TAB PO SCH (22:44)
[2024-06-01] MEDS ORDERED: MAG-OX 400400 MG/TAB PO (22:45)
[2024-06-01] MEDS ORDERED: DULCOLAX S10 MG/SUPP RC (22:45)
[2024-06-01] MEDS ORDERED: SENNA-LAX8.6 MG PO (22:46)
[2024-06-01] MEDS ORDERED: PROBIOTIC BLEN1 EACH PO (22:46)
[2024-06-01] MEDS ORDERED: oxyCODONE 5 MG TAB PO PRN (23:00)
[2024-06-01] MEDS ORDERED: LORazepam 0.5 MG TAB PO PRN (23:00)
[2024-06-01] MEDS ORDERED: Furosemide 40 MG/4 ML VIAL IV ONE (23:15)
[2024-06-01 23:24] VITALS: BP 123/78; PULSE 99; TEMP 98.3
[2024-06-02] VITALS (11 sets, daily range): BP systolic 125–166; BP diastolic 62–92; PULSE 66–94; TEMP 97.4–98.5
[2024-06-02 01:41] LABS: BASO # 0.1 K/mm3 (0.0-0.2); BASO % 0.8 % (0.0-2.0); EOS # 0.1 K/mm3 (0.0-0.7); EOS % 2.2 % (0.0-4.0); GRAN # 4.3 K/mm3 (1.4-6.5); GRAN % 71.8 % (42.2-75.2); LYMPH # 0.6 K/mm3 (1.2-3.4); LYMPH % 10.1 % (20.0-51.0); MEAN CELL VOLUME 93 fl (80.0-100.0); MEAN CORPUSCULAR HGB CONC 33 g/dl (33.0-37.0); MEAN PLATELET VOLUME 10.3 fl (7.4-10.4); MONO # 0.9 K/mm3 (0.1-0.6); MONO % 14.8 % (1.7-9.3); PLATELET COUNT 201 K/mm3 (130-400); RED BLOOD COUNT 2.89 M/mm3 (4.10-5.30); REDCELL DISTRIBUTION WIDTH-CV 19.3 % (11.5-14.5)
[2024-06-02 01:43] LABS: HEMATOCRIT 26.8 % (37.0-47.0); HEMOGLOBIN 8.8 g/dl (12.5-16.0); MEAN CORPUSCULAR HEMOGLOBIN 30 pg (27-31)
[2024-06-02 01:54] LABS: ANION GAP 12 mmol/L (7-16); CALCIUM 8.3 mg/dL (8.4-10.2); CHLORIDE 101 mEq/L (98-107); GLUCOSE 89 mg/dL (70-99); POTASSIUM 3.6 mEq/L (3.5-4.5); SODIUM 135 mEq/L (136-145)
[2024-06-02 01:56] LABS: BLOOD UREA NITROGEN < 5 mg/dL (10-20)
--- NOTE | 2024-06-02 04:54 | NUR ---
Vancomycin Initial Dosing Pharmacy Note Ordering provider: Gavin Mcgregor MD Indication/duration: Abdominal abcess x 7 days Relevant comorbidities: Complicated abdominal hx, hx of VRE LABS: WBC = 6.0, SCr = 0.8 Recommendation: Will draw troughs and follow levels. Loading dose: 2 grams Maintenance dose: 1 gram every 12 hours Trough goal: 15-20 ug/mL
--- NOTE | 2024-06-02 08:00 | NUR ---
PATIENT A&O X4. VSS. NO C/O PAIN OR N/V. PATIENT TRANSFERS WITH ASSIST X1 WITH WALKER AND GAIT BELT. PATIENT USES BEDSIDE COMMODE FOR TOILETING. BREAKFAST ORDERED. SHIFT ASSESSMENT COMPLETE AND MORNING MEDICATIONS ADMINISTERED. PERIPHERAL IV IN RAC IS INTACT AND PATENT. IV ANTIBIOTICS RUNNING NOW. NO FURTHER NEEDS AT THIS TIME. CALL LIGHT WITHIN REACH.
[2024-06-02] MEDS ORDERED: ZOFRAN ODT4 MG PO (08:45)
[2024-06-02] MEDS ORDERED: Magnesium Oxide 400 MG TAB PO SCH (09:00)
[2024-06-02] MEDS ORDERED: buPROPion XL (24-HR) 150 MG TAB PO SCH (09:00)
[2024-06-02] MEDS ORDERED: Famotidine 20 MG TAB PO SCH (09:00)
[2024-06-02] MEDS ORDERED: Furosemide 40 MG/4 ML VIAL IV SCH (09:00)
[2024-06-02] MEDS ORDERED: Furosemide 40 MG TAB PO SCH (09:00)
--- NOTE | 2024-06-02 13:59 | NUR ---
Entry Level Manufacturing Engineer attended clinical rounds with the team and patient to have surgical consult today. SHARONDA followed up with patient to complete initial intake. Patient was discharged from [facility] ([facility]) yesterday and attempted to return home. With the assist of two people, she was able to go up the 17 stairs into her home. Patient advised her friend went out to buy her a stool riser, but while her friend was out, she went to the bathroom on her own and then could not get out of her bathroom. EMS was contacted and she was brought to the ED where she was then admitted under observation status. Patient stated she was [facility] with [facility] and was only given notice that she would be discharged Saturday (06/01/24) on Saturday (05/29/24). Patient stated she was supposed to be set up with [facility] at time of discharge. Patient stated he was trying to secure a recliner so she could sleep in it once she got home. Patient stated she called her son yesterday for assistance but he "blew up" at her. Patient stated she has a walker at home and was working on getting grab bars and stool riser for home. When SW asked what DME she used at home, patient initially stated "nothing". Patient stated she has 17 stairs into her home. Patient advised her friend, Sulema (ph#[phone]) is one of the people who helped her into the home yesterday. Patient reported her brother, Vijay (ph#[phone]) is her DPOA-HC. SW inquired about discharge planning and patient is firm she is going home with Home Health. Patient asked about resources to assist her up her stairs and SW advised sometimes they utilize [facility] to assist patients into the home. SHARONDA Salinas faxed referral to [facility] . SHARONDA contacted Sulema, patient's friend who expressed great concern with patient returning home. Sulema stated it took two people yesterday to barely get patient back into her apartment. Sulema advised patient could not lift her legs independently and could not get in/out of her bathroom. Sulema stated patient does not have a working washer/dryer and her bed is elevated and she cannot safely get in/out of it, which is why patient plans to sleep in a recliner. Sulema stated she would be available by phone to particpate in a care plan conference tomorrow during rounding with Substitute Crossing Guard. Discharge Plan: Home with [facility] vs placement, pending patient willingness
--- NOTE | 2024-06-02 17:25 | NUR ---
PATIENT VERY ANXIOUS ABOUT NOT BEING SEEN BY SURGEON FOR SURGICAL CONSULT YET TODAY. CALLED DR SUAREZ AND LET HIM KNOW THE SITUATION AND HE SAID HE WILL BE IN THIS EVENING TO SEE HER.
[2024-06-03] VITALS (11 sets, daily range): BP systolic 122–145; BP diastolic 72–79; PULSE 88–96; TEMP 97.9–98.2
--- NOTE | 2024-06-03 00:56 | NUR ---
Shift assessment completed- see documentation. Pt is alert and oriented. She reports pain inhis lower extremeties upon movement. States that she believes the soreness is from her fall prior to admission. Pt was assisted to the bedside commode. PM medications administered along with PRN ativan and oxicodone as requested. Pt requested a purewick due to lasix administration tonight. This was carried out. Intake and output being monitored in addition to the colostomy. Pt was assisted with positioning in bed. Pt denies other needs at this time. Fall precautions in place and call light within reach.
[2024-06-03 07:49] LABS: BASO # 0.1 K/mm3 (0.0-0.2); BASO % 1.1 % (0.0-2.0); EOS # 0.2 K/mm3 (0.0-0.7); EOS % 3.3 % (0.0-4.0); GRAN # 3.7 K/mm3 (1.4-6.5); GRAN % 67.9 % (42.2-75.2); LYMPH # 0.6 K/mm3 (1.2-3.4); LYMPH % 11.7 % (20.0-51.0); MEAN CELL VOLUME 94 fl (80.0-100.0); MEAN CORPUSCULAR HGB CONC 33 g/dl (33.0-37.0); MEAN PLATELET VOLUME 10.1 fl (7.4-10.4); MONO # 0.8 K/mm3 (0.1-0.6); MONO % 15.6 % (1.7-9.3); PLATELET COUNT 216 K/mm3 (130-400); RED BLOOD COUNT 2.79 M/mm3 (4.10-5.30); REDCELL DISTRIBUTION WIDTH-CV 19.3 % (11.5-14.5)
[2024-06-03 07:56] LABS: HEMATOCRIT 26.1 % (37.0-47.0); HEMOGLOBIN 8.6 g/dl (12.5-16.0); MEAN CORPUSCULAR HEMOGLOBIN 31 pg (27-31)
[2024-06-03 08:11] LABS: ANION GAP 16 mmol/L (7-16); CALCIUM 8.9 mg/dL (8.4-10.2); CHLORIDE 96 mEq/L (98-107); CREATININE, serum 0.71 mg/dL (0.57-1.11); SODIUM 134 mEq/L (136-145)
[2024-06-03 08:23] LABS: BLOOD UREA NITROGEN < 5 mg/dL (10-20); GLUCOSE 67 mg/dL (70-99); POTASSIUM 2.6 mEq/L (3.5-4.5)
[2024-06-03] MEDS ORDERED: Potassium Bicarbonate/Citrate 20 MEQ Effervescent TAB PO SCH ×2 (08:45→11:30)
[2024-06-03] MEDS ORDERED: *Potassium Replacement Protocol MC SCH (08:45)
--- NOTE | 2024-06-03 09:10 | NUR ---
Patient resting in bed, she Dr. Brannon just saw her. Alert and oriented x4, satates noone has been there to help her. Pt starts to complain that nobody has paying attention to her and started to seems to want to cry.This nurse explained I am right there to do it while Dr. Mancilla just arriving to see her. Dr. Mancilla explains plan and that he will talk to the team about it. PT and OT arrived to work with her. I asked her to take her medications and explained she is getting her antibiotics. Pt upset and requested to talk to presentation manager. Report given to Charge nurse Glo. PT and OT still working wit PT.
--- NOTE | 2024-06-03 09:20 | NUR ---
This nurse unable to chart assessment since patient refused.
[2024-06-03] MEDS ORDERED: Potassium Chloride 10 mEq/100 mL IV Soln IV SCH (09:30)
--- NOTE | 2024-06-03 09:40 | NUR ---
Report given to BRUNA Solorzano.
[2024-06-03] MEDS ORDERED: Magnesium Sulfate 4% 50 ML IV ONE (10:30)
--- NOTE | 2024-06-03 11:19 | NUR ---
Report received from NAILA Merchant at 1000. Shift assessment completed. 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 This nurse notifed SHARONDA Linares of pt concerns and mitigation supervisor Taniya. INT to Rt AC patent with minimal drainage, no redness, or swelling. Flushes without complications. IV potassium started into Rt AC as ordered and this nurse provided education to pt regarding need for IV replacement. Pt agreeable. During potassium infusion pt stated to this nurse that IV was burning and intolerable pain. Pt requested infusion be stopped and stated she did not want IV potassium. This nurse stopped infusion and flushed line. This nurse provided education regarding oral potassium with drink and pt was agreeable. This nurse notifed GORDON Larios by phone and GORDON Larios gave TORB to switch from IV potassium to oral potassium.
[2024-06-03] MEDS ORDERED: Ondansetron 4 MG/2 ML VIAL IV PRN (12:45)
--- NOTE | 2024-06-03 14:46 | NUR ---
Production Engine Repairer met with patient per her request to discuss her discharge plan. Patient advised she feels like she doesn't know what's going on and also that her son "hates her". Patient feels that if she can get her home set up correctly with a recliner, she would be able to manage at home. SW discussed LTC as an alternative if she cannot care for herself at home. SW discussed applying for Medicaid and the process involved as patient would not be able to private pay. Patient still stated she wants to go home with [facility]. [facility] [employer] Sales Representative, Elder visited with patient at bedside today. Patient stated she is working on getting someone to drive her home and assist with delivery of a recliner to her apartment.
--- NOTE | 2024-06-03 21:33 | NUR ---
PT RESTING IN BED, ALERT AND ORIENTEDX3. RATES PAIN 6/10 AND REQUESTED OXYCODONE. ALSO GAVE PT ATIVIAN WITH NIGHT TIME MED. ASSESSED PT. COLOSTOMY IS DRAINING WELL. PT IS UPSET THAT SHE IS NOT GETTING HER LASIX TONIGHT. THIS NURSE EXPLAINED TO PT THAT HER POTASSIUM IS VERY LOW AND THAT IS WHY SHE IS NOT GETTING IT. PT REQUESTED TO TALK TO SEGREGATOR TIM. NO OTHER COMPLAINTS AT THIS TIME CALL LIGHT WITHIN REACH.
[2024-06-03] MEDS ORDERED: Potassium Bicarbonate/Citrate 20 MEQ Effervescent TAB PO ONE (22:30)
[2024-06-04] VITALS (12 sets, daily range): BP systolic 115–141; BP diastolic 66–86; PULSE 82–103; TEMP 97.6–99.3
--- NOTE | 2024-06-04 00:20 | NUR ---
PATIENT ASLEEP, RESTING IN BED. PATIENT EASILY AROUSES TO NAME. CALL LIGHT WITHIN REACH. FALL PRECAUTIONS IN PLACE. PATIENT DENIES ANY NEEDS OR COMPLAINTS AT THIS TIME. IV ANTX INFUSING WITHOUT ANY ISSUES OR COMPLAINTS.
[2024-06-04 03:55] LABS: BASO % 0.8 % (0.0-2.0); EOS # 0.1 K/mm3 (0.0-0.7); EOS % 2.5 % (0.0-4.0); GRAN # 3.3 K/mm3 (1.4-6.5); GRAN % 68.4 % (42.2-75.2); LYMPH # 0.6 K/mm3 (1.2-3.4); LYMPH % 12.1 % (20.0-51.0); MEAN CELL VOLUME 94 fl (80.0-100.0); MEAN CORPUSCULAR HGB CONC 32 g/dl (33.0-37.0); MEAN PLATELET VOLUME 10.1 fl (7.4-10.4); MONO # 0.8 K/mm3 (0.1-0.6); PLATELET COUNT 190 K/mm3 (130-400); RED BLOOD COUNT 2.85 M/mm3 (4.10-5.30); REDCELL DISTRIBUTION WIDTH-CV 19.2 % (11.5-14.5)
[2024-06-04 04:06] LABS: ANION GAP 10 mmol/L (7-16); CALCIUM 8.1 mg/dL (8.4-10.2); CHLORIDE 100 mEq/L (98-107); GLUCOSE 81 mg/dL (70-99); POTASSIUM 3.2 mEq/L (3.5-4.5); SODIUM 135 mEq/L (136-145)
[2024-06-04 04:13] LABS: BLOOD UREA NITROGEN < 5 mg/dL (10-20)
[2024-06-04 04:14] LABS: HEMATOCRIT 26.9 % (37.0-47.0); HEMOGLOBIN 8.7 g/dl (12.5-16.0); MEAN CORPUSCULAR HEMOGLOBIN 31 pg (27-31)
--- NOTE | 2024-06-04 04:47 | NUR ---
PATIENT VANC TROPH THIS AM CAME BACK AT 31.77. PHARMACY CALLED, PER PHARM NON ADMIN 0400 AM DOSE AND THEY INOCENCIA LOOK INTO CHANGING DOSE. NIGHT ENGINEERING CONSULTANT INFORMED IS AWARE PHARMACY HAS BEEN NOTIFIED. NO NEW ORDERS AT THIS TIME.
--- NOTE | 2024-06-04 07:00 | NUR ---
appears to be sleeping, in bed with lights off, eyes closed, resp quiet and easy, bedside shift report received from NAILA Beard
[2024-06-04] MEDS ORDERED: Potassium Bicarbonate/Citrate 20 MEQ Effervescent TAB PO SCH (07:30)
--- NOTE | 2024-06-04 08:00 | NUR ---
appears to be sleeping, awakened and full assessment completed, see interventions for furtherinfo, colostomy intact with liquid/semisoft brown stool in bag, puresick in place and removed at this time, pericare provided, rolled to side and cocyx is intact with slight redness to inside of buttocks, clear light green liquid from rectum during pericare, she states this has just started happening and Dr Mancilla needs to be made aware, pericare provided, breakfast ordered, denies needs at this time
--- NOTE | 2024-06-04 08:45 | NUR ---
Dr Brannon and care team in to see patient
[2024-06-04] MEDS ORDERED: Furosemide 40 MG TAB PO SCH (09:00)
--- NOTE | 2024-06-04 09:20 | NUR ---
breakfast at bedside, assisted with sitting up in bed and placing trayfor patient to eat
--- NOTE | 2024-06-04 10:15 | NUR ---
to radiology per WC for CT scan
--- NOTE | 2024-06-04 10:43 | NUR ---
returned per WC from radiology, sitting up on side of bed, [facility] states was unable to complete scan due to machine not working
--- NOTE | 2024-06-04 11:15 | NUR ---
physical therapy in to work with patient, assisted up to bathroom and assisted her with emptying her colostomy bag, there is a 150ml reddish brown liquid/soft stool and it has blood tinge steads in colostomy bag, pateint states she is still having loose liquid from rectum, do not observe any at this time, assisted out of bathroom and to recliner,
--- NOTE | 2024-06-04 11:40 | NUR ---
to radiology per WC for CT manriquez
--- NOTE | 2024-06-04 12:00 | NUR ---
returned from radiology per WC, assisted up and into bathroom, she voids qs, she is able to complete with cleaning and standing independently, then ambulates to chair, lunch ordered
[2024-06-04] MEDS ORDERED: Iohexol 300 - 100 ML VIAL IV ONE (12:02)
--- NOTE | 2024-06-04 13:04 | NUR ---
sitting up in bed and lunch delivered
--- NOTE | 2024-06-04 14:00 | NUR ---
social insurance specialist in and informed patient she would not be going home today, patient verbalizes understanding
--- NOTE | 2024-06-04 14:30 | NUR ---
Qa Lead attended clinical rounds with the team and patient is a possible discharge later pending a repeat CT. SW met with patient who confirmed she still wishes to return home with [facility] . Patient is working on contacting her son, Shane to determine if he can provide transportation home. Patient also expressed interested in private duty services. Elder from [facility] came up to patient's room to discuss getting that established for overnight care. Later in the afternoon, SHARONDA was advised patient will not be discharged today after review of the CT. SHARONDA updated Elder at [facility] .
--- NOTE | 2024-06-04 15:00 | NUR ---
c/o some abdominal pain and medicated with tylenol 650mg po
--- NOTE | 2024-06-04 17:45 | NUR ---
resting in bed, supper ordered
--- NOTE | 2024-06-04 19:04 | NUR ---
bedside shift report given to NAILA Jackman
--- NOTE | 2024-06-05 00:18 | NUR ---
Shift assessment completed- see documentation. Pt is alert and oriented. She reports pain at a 6/10 in her abdomen and requests pain medications prior to bed. PM medications were administered with PRN oxicodone and ativan as requested by pt. Colostomy was assessed and had minimal output at this time. Pt reports pain at the IV site upon flushing and there is leaking at the insertion site. IV access was discontinued and new site will be established. Fall precautions in place and call light left within reach.
[2024-06-05 00:23] VITALS: BP_SYST 124
[2024-06-05 03:57] VITALS: BP 146/80; PULSE 92; TEMP 98.2
[2024-06-05 04:30] VITALS: BP_SYST 146
--- NOTE | 2024-06-05 06:24 | NUR ---
IV access attempts unsuccessful by this nurse and the charge. supervisor vegetable farming was contacted. I called GORDON Stokes at 0320 concerning the delay in abx administration. He stated to resume IV abx therapy once IV access was ensured. Donnie sup achieved IV access at 0615 on L forearm. IV zosyn will be administered now and retimed in the DEC.
[2024-06-05 07:56] VITALS: BP 141/64; PULSE 92; TEMP 98.1
[2024-06-05 08:30] VITALS: BP_SYST 141
[2024-06-05] MEDS ORDERED: levoFLOXacin 750 MG TAB PO SCH (09:00)
[2024-06-05] MEDS ORDERED: metroNIDAZOLE 250 MG TAB PO SCH (09:00)
[2024-06-05] MEDS ORDERED: LEVAQUIN 750MG750 M1 PO (10:36)
[2024-06-05] MEDS ORDERED: FLAGYL500 MG PO (10:36)
[2024-06-05] MEDS ORDERED: MAG-OX 400400 MG/TAB PO (10:36)
[2024-06-05] MEDS ORDERED: PROBIOTIC ACID1 EAC3 PO (10:37)
--- NOTE | 2024-06-05 12:12 | NUR ---
DISCHARGE INSTRUCTIONS REVIEWED WITH PT. QUESTIONS ANSWERED. PT LEFT UNIT PER WHEEL CHAIR. ASSISTED INTO UBER.
--- NOTE | 2024-06-05 17:02 | NUR ---
Stack Clerk attended clinical rounds with the team. Patient is ready for discharge today, however stated she is not prepared to go home as she does not have a recliner, a ride home, or overnight private care set up. SHARONDA advised Home Health was set up and a referral had been made for private duty. SHARONDA also advised she could not stay another night in order to have more time to get a recliner or find a ride. Patient requested to speak with Chief Of Surgery. After CMD and [employer] met with patient, they informed SW that patient will leave at noon via UBER with assistance from [facility] to get up her stairs. SHARONDA arranged [facility] ride along with assistance from EMS to get into her apartment. SHARONDA contacted Elder at [facility] and faxed discharge orders. Elder advised they are working to establish private duty care for this evening.
--- NOTE | 2024-06-05 18:57 | NUR ---
calender worker helper and jeff Mathewstank house supervisor met with patient and confirmed that patient is medically cleared to discharge today. Patient wishes to return to her home and is agreeable to an uber ride with ambulance helping her get up the stairs into her apartment. Patient was recently brought to her home by friends, from a nursing facility. Patient states she couldn't stay there as she has rent to pay. Worker and patient discussed the need for patient to be in half-way care and how that is paid through her financial obligation and medicaid. Patient verbalizes she does not wish to be in front desk assistant care. Discharge plan: home with [facility].
--- NOTE | 2024-06-06 10:51 | NUR ---
SW was called on this day by [facility] staff member providing they will be unable to assist patient with services due to the patient being unable to transfer self. Staff member stated patient is awaiting information to be transfered to nursing facility. Staff member provided they will be contacting a private duty services to assist with patient needs. Nothing further.
== END 2024-06-05 12:19 | disposition home or self-care (01) ==
LOC: COL.ER 16:31 → MEDICAL 19:16
PROVIDERS: Emergency Medicine; Nurse Practitioner Family; ADMIT Internal Medicine
DX: R53.1 Weakness (principal); R53.81 Other malaise; K65.1 Peritoneal abscess; R10.9 Unspecified abdominal pain; R18.8 Other ascites; K76.0 Fatty (change of) liver, not elsewhere classified; N83.8 Other noninflammatory disorders of ovary, fallopian tube and broad ligament; D64.9 Anemia, unspecified; F32.A Depression, unspecified; E87.20 Acidosis, unspecified; R74.01 Elevation of levels of liver transaminase levels; I50.30 Unspecified diastolic (congestive) heart failure; E87.1 Hypo-osmolality and hyponatremia; E87.6 Hypokalemia; E83.42 Hypomagnesemia; R74.8 Abnormal levels of other serum enzymes; H54.7 Unspecified visual loss; Z86.711 Personal history of pulmonary embolism; Z86.718 Personal history of other venous thrombosis and embolism; Z79.01 Long term (current) use of anticoagulants; Z79.899 Other long term (current) drug therapy; Z93.3 Colostomy status; I07.1 Rheumatic tricuspid insufficiency
CPT/HCPCS: G0378; J1940; J2405; J2543; J3370; J3475; J3480; J7050; Q9967

== ENCOUNTER 2024-06-05 19:27 | Emergency (ER) | payer MEDICARE ==
[~2024-06-05] VITALS: Ht 160 cm; Wt 99.5 kg
[~2024-06-05 19:27] MED LIST changes: +ATIVAN 0.50.5 MG/TAB PO; +DULCOLAX S10 MG/SUPP RC; +ELIQUIS 5MG PO; +K-DUR20 MEQ PO; +LASIX 20MG TABL20 MG PO; +LEVAQUIN 750MG750 M1 PO; +MAG-OX 400400 MG/TAB PO; +PEPCID 20MG TAB20 MG PO; +PROBIOTIC BLEN1 EACH PO; +SENNA-LAX8.6 MG PO; +ZOFRAN ODT4 MG PO
[2024-06-05 19:28] VITALS: TEMP 98.3
[2024-06-05 20:16] LABS: BASO % 0.5 % (0.0-2.0); EOS % 0.2 % (0.0-4.0); GRAN # 6.8 K/mm3 (1.4-6.5); GRAN % 82.4 % (42.2-75.2); HEMOGLOBIN 10.8 g/dl (12.5-16.0); LYMPH # 0.6 K/mm3 (1.2-3.4); LYMPH % 7.3 % (20.0-51.0); MEAN CELL VOLUME 94 fl (80.0-100.0); MEAN CORPUSCULAR HEMOGLOBIN 31 pg (27-31); MEAN CORPUSCULAR HGB CONC 33 g/dl (33.0-37.0); MONO # 0.8 K/mm3 (0.1-0.6); MONO % 9.2 % (1.7-9.3); PLATELET COUNT 270 K/mm3 (130-400); RED BLOOD COUNT 3.53 M/mm3 (4.10-5.30)
[2024-06-05 20:17] LABS: HEMATOCRIT 33.1 % (37.0-47.0)
[2024-06-05 20:38] LABS: ALANINE AMINOTRANSFERASE 26 U/L (0-55); ALBUMIN 2.1 g/dL (3.4-4.8); ALKALINE PHOSPHATASE 421 U/L (40-150); ANION GAP 13 mmol/L (7-16); AST,SGOT 53 U/L (5-34); BILIRUBIN,TOTAL 0.9 mg/dL (0.2-1.2); CALCIUM 9.2 mg/dL (8.4-10.2); CHLORIDE 96 mEq/L (98-107); CREATININE, serum 0.75 mg/dL (0.57-1.11); GLUCOSE 91 mg/dL (70-99); MAGNESIUM 1.7 mg/dL (1.6-2.6); POTASSIUM 3.1 mEq/L (3.5-4.5); SODIUM 132 mEq/L (136-145)
[2024-06-05 20:39] LABS: BLOOD UREA NITROGEN < 5 mg/dL (10-20)
[2024-06-05 20:41] LABS: TROPONIN-I 0.015 ng/mL (0.00-0.033)
[2024-06-05 22:25] VITALS: BP 130/75; PULSE 88
== END 2024-06-05 22:25 | disposition home or self-care (01) ==
LOC: COL.ER 19:27
PROVIDERS: Emergency Medicine
DX: R53.1 Weakness (principal)

== ENCOUNTER 2024-07-09 11:24 | Emergency (ER) | payer MEDICARE ==
[~2024-07-09] VITALS: Ht 160 cm; Wt 95.5 kg
[2024-07-09 11:25] VITALS: TEMP 98.6
[2024-07-09] MEDS ORDERED: NS 1,000 ML IV ONE (11:45)
[2024-07-09 12:13] LABS: BASO % 0.5 % (0.0-2.0); EOS % 0.1 % (0.0-4.0); GRAN # 5.8 K/mm3 (1.4-6.5); GRAN % 78.4 % (42.2-75.2); LYMPH # 0.6 K/mm3 (1.2-3.4); LYMPH % 7.8 % (20.0-51.0); MEAN CELL VOLUME 101 fl (80.0-100.0); MEAN CORPUSCULAR HGB CONC 33 g/dl (33.0-37.0); MEAN PLATELET VOLUME 9.7 fl (7.4-10.4); MONO # 0.9 K/mm3 (0.1-0.6); MONO % 12.7 % (1.7-9.3); PLATELET COUNT 249 K/mm3 (130-400); RED BLOOD COUNT 2.22 M/mm3 (4.10-5.30); REDCELL DISTRIBUTION WIDTH-CV 17.5 % (11.5-14.5)
[2024-07-09 12:17] LABS: HEMATOCRIT 22.4 % (37.0-47.0); HEMOGLOBIN 7.3 g/dl (12.5-16.0); MEAN CORPUSCULAR HEMOGLOBIN 33 pg (27-31)
[2024-07-09 13:20] LABS: ALANINE AMINOTRANSFERASE 11 U/L (0-55); ALBUMIN 1.3 g/dL (3.4-4.8); ALKALINE PHOSPHATASE 397 U/L (40-150); ANION GAP 6 mmol/L (7-16); AST,SGOT 36 U/L (5-34); BILIRUBIN,TOTAL 0.7 mg/dL (0.2-1.2); C-REACTIVE PROTEIN 13.47 mg/dL (0.00-0.50); CALCIUM 6.5 mg/dL (8.4-10.2); CHLORIDE 106 mEq/L (98-107); CREATININE, serum 0.49 mg/dL (0.57-1.11); GLUCOSE 74 mg/dL (70-99); SODIUM 136 mEq/L (136-145); TOTAL PROTEIN 4.2 g/dl (6.2-8.1)
[2024-07-09 13:22] LABS: BLOOD UREA NITROGEN < 5 mg/dL (10-20)
[2024-07-09 13:23] LABS: POTASSIUM 2.1 mEq/L (3.5-4.5)
[2024-07-09] MEDS ORDERED: Potassium Chloride 100 ML IV ONE ×2 (13:30→16:00)
[2024-07-09] MEDS ORDERED: Iohexol 300 - 100 ML VIAL IV ONE (14:04)
[2024-07-09] MEDS ORDERED: NS 100 ML IV SCH (14:05)
[2024-07-09] MEDS ORDERED: Magnesium Sulfate 8% 50 ML IV ONE (15:30)
[2024-07-09] MEDS ORDERED: NS & 40 mEq KCl 1,000 ML IV ONE (16:00)
[2024-07-09] MEDS ORDERED: Magnesium Sulfate 2 GM/50 ML IV SOLN IV ONE (16:00)
[2024-07-09] MEDS ORDERED: LORazepam 2 MG/ML 1 ML VIAL IV ONE (18:00)
[2024-07-09 19:08] VITALS: BP 137/73; PULSE 93
== END 2024-07-09 19:08 | disposition short-term general hospital (02) ==
LOC: COL.ER 11:24
PROVIDERS: Emergency Medicine
DX: K63.2 Fistula of intestine (principal); E87.6 Hypokalemia; E83.42 Hypomagnesemia; D64.9 Anemia, unspecified; Z93.3 Colostomy status
CPT/HCPCS: J2020; J2060; J3475; J3480; J7030; Q9967